=== PATIENT | male | born 1965 | race Two or more races ===

== ENCOUNTER 2023-01-04 21:00 | Inpatient (IN) | payer MEDICAID, OTHER ==
[~2023-01-04] VITALS: Ht 185.4 cm; Wt 74.7 kg
[2023-01-04 21:10] VITALS: BP 89/58
[2023-01-04 22:10] LABS: Basophils # (auto) 0 10 ^3/uL (0-0.2); Basophils % (auto) 0.6 % (0.0-2.0); Eosinophils # (auto) 0.1 10 ^3/uL (0-0.8); Eosinophils % (auto) 3.2 % (0.0-7.0); Hematocrit 31.8 % (41.0-53.0); Hemoglobin 10.3 g/dL (13.5-17.5); Lymphocytes # (auto) 0.9 10 ^3/uL (0.4-5.4); Lymphocytes % (auto) 22.7 % (10.0-50.0); Mean Corpuscular Hemoglobin 28.5 pg (28.0-32.0); Mean Corpuscular Hgb Conc. 32.4 g/dL (32.0-36.0); Mean Corpuscular Volume 88.1 fL (80.0-100.0); Monocytes # (auto) 0.5 10 ^3/uL (0-1.3); Neutrophils # (auto) 2.4 10 ^3/uL (1.6-8.6); Neutrophils % (auto) 61.5 % (37.0-80.0); Nucleated Red Blood Cells % 0.1 %; White Blood Cell 3.9 10^3/uL (4.4-10.8)
[2023-01-04 22:11] LABS: Red Cell Distribution Width 22.1 % (11.8-14.3)
[2023-01-04 22:23] LABS: Albumin 2.4 g/dL (3.4-5.0); BUN/Creatinine Ratio 10.7; Potassium 3.8 mmol/L (3.5-5.1)
[2023-01-04 22:26] LABS: Bilirubin, Total 1.6 mg/dL (0.2-1.0); Total Protein 6.8 g/dL (6.4-8.2)
[2023-01-04 22:34] LABS: INR 1.25 (0.9-1.15); Partial Thromboplastin Time 50.4 sec (24.6-33.4)
[2023-01-05 00:14] VITALS: BP 89/58
[2023-01-05] MEDS ORDERED: ALBUTEROL SULF 2.5 MG/0.5ML(0.5%) NEB SOLN NEB PRN (02:45)
[2023-01-05] MEDS ORDERED: MORPHINE SULFATE INJ 2 MG/ml SYRG IV PRN (02:45)
[2023-01-05] MEDS ORDERED: MIDODRINE HCL 10 MG TAB PO ONE (02:45)
[2023-01-05] MEDS ORDERED: IPRATROPIUM BROM 0.5 MG/2.5ML INH SOL NEB PRN (02:45)
[2023-01-05] MEDS ORDERED: NITROGLYCERIN 0.4 MG SL TAB SL PRN (02:45)
[2023-01-05] MEDS ORDERED: FUROSEMIDE 40 MG/4 ML VIAL IV ONE (02:45)
[2023-01-05] MEDS ORDERED: ONDANSETRON HCL 4 MG/2 ML VIAL IV PRN (02:45)
[2023-01-05] MEDS ORDERED: ALBUMIN 25% 50 ML IV ONE (02:45)
[2023-01-05] MEDS ORDERED: ALBUMIN 25% 100 ML IV ONE (04:30)
[2023-01-05 06:35] LABS: Urine Bacteria NONE SEEN /hpf (None Seen); Urine Blood Negative /uL (Negative); Urine Specific Gravity 1.006 (1.001-1.035); Urine WBC <1 /hpf (0 - 3)
[2023-01-05] MEDS: MIDODRINE HCL 10 MG TAB PO SCH ×3 (06:57→18:41)
[2023-01-05] MEDS ORDERED: IOHEXOL 350 MG/ML 100ML IJ ONE (08:21)
[2023-01-05] MEDS: AMIODARONE HCL 200 MG TAB PO SCH ×2 (09:42→21:38)
[2023-01-05] MEDS: PANTOPRAZOLE 40 MG TAB PO SCH (09:42)
[2023-01-05] MEDS ORDERED: ENOXAPARIN SOD 40 MG/0.4 ML SYRINGE SC SCH (10:00)
[2023-01-05] MEDS ORDERED: ENOXAPARIN SOD 100 MG/1 ML SYRINGE SC SCH (10:00)
[2023-01-05 11:10] LABS: Magnesium 1.7 mg/dL (1.6-2.6)
[2023-01-05 12:00] VITALS: BP 115/70
[2023-01-05] MEDS ORDERED: cefTRIAXone 1GM/50ML D5W 50 ML IV ONE (13:45)
[2023-01-05] MEDS ORDERED: AZITHROMYCIN 250 MG TAB PO ONE (13:45)
[2023-01-05 13:51] LABS: Basophils # (auto) 0 10 ^3/uL (0-0.2); Basophils % (auto) 0.5 % (0.0-2.0); Eosinophils # (auto) 0.1 10 ^3/uL (0-0.8); Eosinophils % (auto) 3.7 % (0.0-7.0); Hematocrit 29.3 % (41.0-53.0); Hemoglobin 9.5 g/dL (13.5-17.5); Lymphocytes # (auto) 0.7 10 ^3/uL (0.4-5.4); Lymphocytes % (auto) 18.7 % (10.0-50.0); Mean Corpuscular Hemoglobin 27.5 pg (28.0-32.0); Mean Corpuscular Hgb Conc. 32.5 g/dL (32.0-36.0); Mean Corpuscular Volume 84.7 fL (80.0-100.0); Monocytes # (auto) 0.5 10 ^3/uL (0-1.3); Monocytes % (auto) 13.2 % (0.0-12.0); Neutrophils # (auto) 2.4 10 ^3/uL (1.6-8.6); Neutrophils % (auto) 63.9 % (37.0-80.0); Nucleated Red Blood Cells % 0.2 %; Red Blood Cells 3.46 10^6/uL (4.5-5.90); White Blood Cell 3.8 10^3/uL (4.4-10.8)
[2023-01-05 13:56] LABS: Red Cell Distribution Width 22.6 % (11.8-14.3)
[2023-01-05 14:01] LABS: Albumin 2.1 g/dL (3.4-5.0); BUN/Creatinine Ratio 8.8; Calcium 7.7 mg/dL (8.5-10.1); Potassium 3.7 mmol/L (3.5-5.1)
[2023-01-05 14:04] LABS: Bilirubin, Total 1.4 mg/dL (0.2-1.0)
[2023-01-05 14:09] VITALS: BP 100/58
[2023-01-05] MEDS ORDERED: ALBUTEROL MEDNEB 2.5 mg/3ml NEB ONE (14:55)
[2023-01-05 15:06] VITALS: BP 108/58
[2023-01-05] MEDS ORDERED: FUROSEMIDE 20 MG/2 ML VIAL IV SCH (18:00)
[2023-01-05] MEDS: FUROSEMIDE 20 MG/2 ML VIAL IV SCH (18:40)
[2023-01-05 20:00] VITALS: BP 102/51
[2023-01-05] MEDS: APIXABAN 5 MG TAB PO SCH (21:38)
[2023-01-05 22:00] VITALS: BP 102/51
[2023-01-06 05:00] VITALS: BP 108/62
[2023-01-06 06:13] LABS: Basophils # (auto) 0 10 ^3/uL (0-0.2); Basophils % (auto) 0.8 % (0.0-2.0); Eosinophils # (auto) 0.1 10 ^3/uL (0-0.8); Eosinophils % (auto) 3.4 % (0.0-7.0); Hematocrit 26.5 % (41.0-53.0); Hemoglobin 9.4 g/dL (13.5-17.5); Lymphocytes # (auto) 0.8 10 ^3/uL (0.4-5.4); Lymphocytes % (auto) 24.5 % (10.0-50.0); Mean Corpuscular Hemoglobin 30.9 pg (28.0-32.0); Mean Corpuscular Hgb Conc. 35.7 g/dL (32.0-36.0); Mean Corpuscular Volume 86.4 fL (80.0-100.0); Monocytes # (auto) 0.5 10 ^3/uL (0-1.3); Neutrophils # (auto) 1.8 10 ^3/uL (1.6-8.6); Neutrophils % (auto) 56.3 % (37.0-80.0); Nucleated Red Blood Cells % 0.1 %; Red Blood Cells 3.06 10^6/uL (4.5-5.90); White Blood Cell 3.2 10^3/uL (4.4-10.8)
[2023-01-06 06:29] LABS: Red Cell Distribution Width 22.1 % (11.8-14.3)
[2023-01-06 06:37] LABS: Albumin 2.2 g/dL (3.4-5.0); Bilirubin, Total 1.3 mg/dL (0.2-1.0); Calcium 7.7 mg/dL (8.5-10.1); Potassium 3.3 mmol/L (3.5-5.1); Total Protein 6.1 g/dL (6.4-8.2)
[2023-01-06] MEDS: MIDODRINE HCL 10 MG TAB PO SCH (06:37)
[2023-01-06] MEDS: FUROSEMIDE 20 MG/2 ML VIAL IV SCH ×2 (06:38→18:00)
[2023-01-06 08:10] VITALS: BP 97/54
[2023-01-06 09:00] VITALS: BP 97/54
[2023-01-06] MEDS ORDERED: ENOXAPARIN SOD 100 MG/1 ML SYRINGE SC SCH (10:00)
[2023-01-06] MEDS: cefTRIAXone 1GM/50ML D5W 50 ML IV SCH (10:10)
[2023-01-06] MEDS: PANTOPRAZOLE 40 MG TAB PO SCH (10:14)
[2023-01-06] MEDS: AMIODARONE HCL 200 MG TAB PO SCH ×2 (10:14→22:39)
[2023-01-06] MEDS: AZITHROMYCIN 250 MG TAB PO SCH (10:14)
[2023-01-06] MEDS: APIXABAN 5 MG TAB PO SCH ×2 (10:14→22:39)
[2023-01-06] MEDS ORDERED: POTASSIUM EFFERVESENT TAB 25 MEQ PO ONE (10:15)
[2023-01-06] MEDS ORDERED: MAGNESIUM OXIDE 400 MG TAB PO ONE (10:15)
[2023-01-06] MEDS: DOBUTamine 1000MCG/ML 250 ML IV SCH (12:21)
[2023-01-06 12:32] LABS: Alcohol, Urine < 3.0 mg/dL (0-10); Amphetamine Screen, Urine NEGATIVE (NEGATIVE); Barbiturate Scree,Urine NEGATIVE (NEGATIVE); Benzodiazephine Screen, Urine NEGATIVE (NEGATIVE); Cannabinoid Screen, Urine POSITIVE (NEGATIVE); Cocaine Screen, Urine NEGATIVE (NEGATIVE); Opiate Scree,Urine NEGATIVE (NEGATIVE); Phencyclidine Screen, Urine NEGATIVE (NEGATIVE)
[2023-01-06 16:36] VITALS: BP 106/49
[2023-01-06 20:00] VITALS: BP 98/55
[2023-01-06 22:00] VITALS: BP 90/55
[2023-01-06] MEDS: SACUBITRIL-VALSARTAN 24mg/26mg TAB PO SCH (22:00)
[2023-01-07] VITALS (8 sets, daily range): BP systolic 96–109; BP diastolic 50–63
[2023-01-07] MEDS: ACETAMINOPHEN 325 MG TAB PO PRN (00:59)
[2023-01-07] MEDS: FUROSEMIDE 20 MG/2 ML VIAL IV SCH ×2 (07:02→17:54)
[2023-01-07] MEDS: EMPAGLIFLOZIN 10 MG TAB PO SCH (07:03)
[2023-01-07] MEDS: DOBUTamine 1000MCG/ML 250 ML IV SCH (07:42)
[2023-01-07 09:12] LABS: Basophils # (auto) 0 10 ^3/uL (0-0.2); Basophils % (auto) 0.6 % (0.0-2.0); Eosinophils # (auto) 0.1 10 ^3/uL (0-0.8); Neutrophils # (auto) 1.8 10 ^3/uL (1.6-8.6)
[2023-01-07 09:16] LABS: Eosinophils % (auto) 4.4 % (0.0-7.0); Hematocrit 30.1 % (41.0-53.0); Lymphocytes # (auto) 0.7 10 ^3/uL (0.4-5.4); Lymphocytes % (auto) 23.7 % (10.0-50.0); Mean Corpuscular Hemoglobin 27.3 pg (28.0-32.0); Mean Corpuscular Hgb Conc. 33.2 g/dL (32.0-36.0); Mean Corpuscular Volume 82.1 fL (80.0-100.0); Monocytes # (auto) 0.3 10 ^3/uL (0-1.3); Monocytes % (auto) 10.6 % (0.0-12.0); Neutrophils % (auto) 60.7 % (37.0-80.0); Red Blood Cells 3.66 10^6/uL (4.5-5.90); White Blood Cell 2.9 10^3/uL (4.4-10.8)
[2023-01-07 09:23] LABS: Red Cell Distribution Width 22.8 % (11.8-14.3)
[2023-01-07] MEDS: cefTRIAXone 1GM/50ML D5W 50 ML IV SCH (09:31)
[2023-01-07 09:32] LABS: Calcium 7.9 mg/dL (8.5-10.1); Potassium 3.5 mmol/L (3.5-5.1)
[2023-01-07 09:39] LABS: Albumin 2.4 g/dL (3.4-5.0); BUN/Creatinine Ratio 10.1; Bilirubin, Total 1.3 mg/dL (0.2-1.0); Magnesium 1.6 mg/dL (1.6-2.6); Total Protein 6.5 g/dL (6.4-8.2)
[2023-01-07] MEDS: SACUBITRIL-VALSARTAN 24mg/26mg TAB PO SCH ×2 (10:00→22:00)
[2023-01-07] MEDS: AZITHROMYCIN 250 MG TAB PO SCH (10:16)
[2023-01-07] MEDS: APIXABAN 5 MG TAB PO SCH ×2 (10:16→22:45)
[2023-01-07] MEDS: AMIODARONE HCL 200 MG TAB PO SCH ×2 (10:16→22:46)
[2023-01-07] MEDS: PANTOPRAZOLE 40 MG TAB PO SCH (10:17)
[2023-01-07] MEDS: MAGNESIUM OXIDE 400 MG TAB PO SCH (10:17)
[2023-01-08] VITALS (8 sets, daily range): BP systolic 86–99; BP diastolic 50–58
[2023-01-08] MEDS: DOBUTamine 1000MCG/ML 250 ML IV SCH ×2 (01:51→17:33)
[2023-01-08 05:22] LABS: Basophils # (auto) 0 10 ^3/uL (0-0.2); Eosinophils # (auto) 0.1 10 ^3/uL (0-0.8); Lymphocytes % (auto) 23.1 % (10.0-50.0); Mean Corpuscular Hemoglobin 26.6 pg (28.0-32.0); Monocytes # (auto) 0.4 10 ^3/uL (0-1.3); Neutrophils # (auto) 1.9 10 ^3/uL (1.6-8.6); Red Blood Cells 2.99 10^6/uL (4.5-5.90)
[2023-01-08 05:26] LABS: Basophils % (auto) 0.6 % (0.0-2.0); Eosinophils % (auto) 4.6 % (0.0-7.0); Hemoglobin 7.9 g/dL (13.5-17.5); Lymphocytes # (auto) 0.7 10 ^3/uL (0.4-5.4); Mean Corpuscular Hgb Conc. 33.2 g/dL (32.0-36.0); Mean Corpuscular Volume 80.1 fL (80.0-100.0); Monocytes % (auto) 13.2 % (0.0-12.0); Neutrophils % (auto) 58.5 % (37.0-80.0); Nucleated Red Blood Cells % 0.1 %; White Blood Cell 3.2 10^3/uL (4.4-10.8)
[2023-01-08 05:29] LABS: Red Cell Distribution Width 22.3 % (11.8-14.3)
[2023-01-08 05:51] LABS: Potassium 3.4 mmol/L (3.5-5.1)
[2023-01-08 05:55] LABS: Albumin 1.9 g/dL (3.4-5.0); BUN/Creatinine Ratio 10.7; Calcium 7.6 mg/dL (8.5-10.1)
[2023-01-08 05:57] LABS: Bilirubin, Total 0.9 mg/dL (0.2-1.0); Total Protein 5.6 g/dL (6.4-8.2)
[2023-01-08] MEDS: FUROSEMIDE 20 MG/2 ML VIAL IV SCH ×2 (06:00→17:33)
[2023-01-08] MEDS: EMPAGLIFLOZIN 10 MG TAB PO SCH (06:34)
[2023-01-08] MEDS: cefTRIAXone 1GM/50ML D5W 50 ML IV SCH (08:41)
[2023-01-08] MEDS: SACUBITRIL-VALSARTAN 24mg/26mg TAB PO SCH ×2 (10:00→22:00)
[2023-01-08] MEDS: APIXABAN 5 MG TAB PO SCH ×2 (10:15→21:38)
[2023-01-08] MEDS: AMIODARONE HCL 200 MG TAB PO SCH ×2 (10:16→21:37)
[2023-01-08] MEDS: AZITHROMYCIN 250 MG TAB PO SCH (10:16)
[2023-01-08] MEDS: PANTOPRAZOLE 40 MG TAB PO SCH (10:16)
[2023-01-08] MEDS: MAGNESIUM OXIDE 400 MG TAB PO SCH (10:16)
[2023-01-08] MEDS ORDERED: POTASSIUM EFFERVESENT TAB 25 MEQ GT ONE (16:00)
[2023-01-08] MEDS ORDERED: POTASSIUM EFFERVESENT TAB 25 MEQ PO ONE (16:15)
[2023-01-08] MEDS: ACETAMINOPHEN 325 MG TAB PO PRN (21:37)
[2023-01-09] VITALS (7 sets, daily range): BP systolic 90–130; BP diastolic 0–83
[2023-01-09] MEDS: FUROSEMIDE 20 MG/2 ML VIAL IV SCH ×2 (06:00→17:40)
[2023-01-09] MEDS: EMPAGLIFLOZIN 10 MG TAB PO SCH (06:24)
[2023-01-09 06:40] LABS: Basophils # (auto) 0 10 ^3/uL (0-0.2); Eosinophils # (auto) 0.2 10 ^3/uL (0-0.8); Lymphocytes # (auto) 0.6 10 ^3/uL (0.4-5.4); Monocytes # (auto) 0.3 10 ^3/uL (0-1.3); White Blood Cell 3.2 10^3/uL (4.4-10.8)
[2023-01-09 06:42] LABS: Basophils % (auto) 0.8 % (0.0-2.0); Eosinophils % (auto) 5.6 % (0.0-7.0); Hematocrit 24.1 % (41.0-53.0); Lymphocytes % (auto) 18.9 % (10.0-50.0); Mean Corpuscular Hemoglobin 27.5 pg (28.0-32.0); Mean Corpuscular Hgb Conc. 33.4 g/dL (32.0-36.0); Mean Corpuscular Volume 82.2 fL (80.0-100.0); Monocytes % (auto) 10.8 % (0.0-12.0); Neutrophils % (auto) 63.9 % (37.0-80.0); Red Blood Cells 2.93 10^6/uL (4.5-5.90)
[2023-01-09 06:48] LABS: Red Cell Distribution Width 21.6 % (11.8-14.3)
[2023-01-09 06:57] LABS: Albumin 1.9 g/dL (3.4-5.0); BUN/Creatinine Ratio 11.7; Calcium 7.7 mg/dL (8.5-10.1); Magnesium 1.8 mg/dL (1.6-2.6); Potassium 3.7 mmol/L (3.5-5.1)
[2023-01-09 06:59] LABS: Bilirubin, Total 0.8 mg/dL (0.2-1.0); Total Protein 5.8 g/dL (6.4-8.2)
[2023-01-09] MEDS: AMIODARONE HCL 200 MG TAB PO SCH ×3 (10:00→22:44)
[2023-01-09] MEDS: cefTRIAXone 1GM/50ML D5W 50 ML IV SCH (11:24)
[2023-01-09] MEDS: MAGNESIUM OXIDE 400 MG TAB PO SCH (11:27)
[2023-01-09] MEDS: SACUBITRIL-VALSARTAN 24mg/26mg TAB PO SCH ×2 (11:27→22:00)
[2023-01-09] MEDS: PANTOPRAZOLE 40 MG TAB PO SCH (11:27)
[2023-01-09] MEDS: AZITHROMYCIN 250 MG TAB PO SCH (11:28)
[2023-01-09] MEDS: DOBUTamine 1000MCG/ML 250 ML IV SCH ×2 (11:36→21:15)
[2023-01-09 14:30] LABS: Basophils # (auto) 0 10 ^3/uL (0-0.2); Basophils % (auto) 0.6 % (0.0-2.0); Eosinophils # (auto) 0.1 10 ^3/uL (0-0.8); Eosinophils % (auto) 3.4 % (0.0-7.0); Hematocrit 27.3 % (41.0-53.0); Hemoglobin 8.7 g/dL (13.5-17.5); Lymphocytes # (auto) 0.8 10 ^3/uL (0.4-5.4); Lymphocytes % (auto) 18.4 % (10.0-50.0); Mean Corpuscular Hgb Conc. 31.9 g/dL (32.0-36.0); Mean Corpuscular Volume 81.3 fL (80.0-100.0); Monocytes # (auto) 0.4 10 ^3/uL (0-1.3); Monocytes % (auto) 9.2 % (0.0-12.0); Neutrophils # (auto) 2.9 10 ^3/uL (1.6-8.6); Neutrophils % (auto) 68.4 % (37.0-80.0); Nucleated Red Blood Cells % 0.1 %; Red Blood Cells 3.35 10^6/uL (4.5-5.90); White Blood Cell 4.3 10^3/uL (4.4-10.8)
[2023-01-10 05:00] VITALS: BP 86/51
[2023-01-10] MEDS: FUROSEMIDE 20 MG/2 ML VIAL IV SCH (06:00)
[2023-01-10] MEDS: EMPAGLIFLOZIN 10 MG TAB PO SCH (06:27)
[2023-01-10 06:48] LABS: Basophils # (auto) 0 10 ^3/uL (0-0.2); Eosinophils # (auto) 0.1 10 ^3/uL (0-0.8); Hemoglobin 7.9 g/dL (13.5-17.5); Lymphocytes # (auto) 0.7 10 ^3/uL (0.4-5.4); Nucleated Red Blood Cells % 0.1 %
[2023-01-10 06:52] LABS: Basophils % (auto) 0.4 % (0.0-2.0); Eosinophils % (auto) 3.8 % (0.0-7.0); Hematocrit 22.7 % (41.0-53.0); Lymphocytes % (auto) 18.7 % (10.0-50.0); Mean Corpuscular Hemoglobin 29.4 pg (28.0-32.0); Mean Corpuscular Hgb Conc. 34.9 g/dL (32.0-36.0); Mean Corpuscular Volume 84.3 fL (80.0-100.0); Monocytes # (auto) 0.5 10 ^3/uL (0-1.3); Neutrophils # (auto) 2.5 10 ^3/uL (1.6-8.6); Neutrophils % (auto) 65.1 % (37.0-80.0); Red Blood Cells 2.69 10^6/uL (4.5-5.90); White Blood Cell 3.9 10^3/uL (4.4-10.8)
[2023-01-10 07:08] LABS: Calcium 7.4 mg/dL (8.5-10.1); Potassium 3.6 mmol/L (3.5-5.1)
[2023-01-10 07:13] LABS: BUN/Creatinine Ratio 12.5; Total Protein 5.6 g/dL (6.4-8.2)
[2023-01-10 07:40] LABS: Red Cell Distribution Width 21.5 % (11.8-14.3)
[2023-01-10 08:46] VITALS: BP 99/49
[2023-01-10] MEDS: SACUBITRIL-VALSARTAN 24mg/26mg TAB PO SCH ×2 (10:00→21:26)
[2023-01-10] MEDS ORDERED: PANTOPRAZOLE 80 MG in SODIUM CHL 0.9% 100 ML IV ONE (10:45)
[2023-01-10] MEDS ORDERED: PANTOPRAZOLE 40mg/50ML NS AE 50 ML IV SCH (10:45)
[2023-01-10] MEDS: AMIODARONE HCL 200 MG TAB PO SCH ×2 (10:57→21:26)
[2023-01-10] MEDS: MAGNESIUM OXIDE 400 MG TAB PO SCH (10:57)
[2023-01-10] MEDS: AZITHROMYCIN 250 MG TAB PO SCH (10:57)
[2023-01-10] MEDS: cefTRIAXone 1GM/50ML D5W 50 ML IV SCH (10:58)
[2023-01-10] MEDS: DOBUTamine 1000MCG/ML 250 ML IV SCH (10:58)
[2023-01-10 13:00] VITALS: BP 90/52
[2023-01-10 13:43] LABS: Lymphocytes # (auto) 0.7 10 ^3/uL (0.4-5.4); Monocytes # (auto) 0.4 10 ^3/uL (0-1.3); White Blood Cell 3.8 10^3/uL (4.4-10.8)
[2023-01-10 13:45] LABS: Basophils # (auto) 0.1 10 ^3/uL (0-0.2); Basophils % (auto) 1.7 % (0.0-2.0); Eosinophils # (auto) 0.1 10 ^3/uL (0-0.8); Eosinophils % (auto) 3.6 % (0.0-7.0); Hematocrit 24.6 % (41.0-53.0); Hemoglobin 7.9 g/dL (13.5-17.5); Lymphocytes % (auto) 17.5 % (10.0-50.0); Mean Corpuscular Hemoglobin 27.7 pg (28.0-32.0); Mean Corpuscular Hgb Conc. 32.4 g/dL (32.0-36.0); Mean Corpuscular Volume 85.7 fL (80.0-100.0); Monocytes % (auto) 10.5 % (0.0-12.0); Neutrophils # (auto) 2.5 10 ^3/uL (1.6-8.6); Neutrophils % (auto) 66.7 % (37.0-80.0); Red Blood Cells 2.87 10^6/uL (4.5-5.90); Red Cell Distribution Width 22.2 % (11.8-14.3)
[2023-01-10 17:10] VITALS: BP 101/50
[2023-01-10] MEDS: PANTOPRAZOLE 40 MG/10 ML VIAL INJ IV SCH (21:25)
[2023-01-10 22:00] VITALS: BP 79/51
[2023-01-10] MEDS ORDERED: SODIUM FERR GLUC 62.5MG/5ML 125 MG in SODIUM CHL 0.9% 100 ML IV ONE (23:00)
[2023-01-11 05:00] VITALS: BP 87/48
[2023-01-11 06:35] LABS: Basophils # (auto) 0 10 ^3/uL (0-0.2); Basophils % (auto) 0.5 % (0.0-2.0); Hematocrit 22.9 % (41.0-53.0); Lymphocytes # (auto) 0.7 10 ^3/uL (0.4-5.4); Monocytes # (auto) 0.4 10 ^3/uL (0-1.3); Neutrophils # (auto) 2.2 10 ^3/uL (1.6-8.6)
[2023-01-11 06:37] LABS: Eosinophils # (auto) 0.2 10 ^3/uL (0-0.8); Eosinophils % (auto) 4.4 % (0.0-7.0); Lymphocytes % (auto) 20.7 % (10.0-50.0); Mean Corpuscular Hemoglobin 30.5 pg (28.0-32.0); Mean Corpuscular Hgb Conc. 34.9 g/dL (32.0-36.0); Mean Corpuscular Volume 87.4 fL (80.0-100.0); Neutrophils % (auto) 63.4 % (37.0-80.0); Nucleated Red Blood Cells % 0.2 %; Red Blood Cells 2.62 10^6/uL (4.5-5.90); White Blood Cell 3.5 10^3/uL (4.4-10.8)
[2023-01-11 06:40] LABS: Potassium 3.7 mmol/L (3.5-5.1)
[2023-01-11] MEDS: EMPAGLIFLOZIN 10 MG TAB PO SCH (06:47)
[2023-01-11] MEDS: SUCRALFATE 1 GM/10 ML ORAL SUSP PO SCH ×2 (06:47→18:00)
[2023-01-11 06:50] LABS: Bilirubin, Total 0.8 mg/dL (0.2-1.0); Calcium 7.6 mg/dL (8.5-10.1); Total Protein 5.6 g/dL (6.4-8.2)
[2023-01-11] MEDS ORDERED: SODIUM FERR GLUC 62.5MG/5ML 125 MG in SODIUM CHL 0.9% 100 ML IV ONE (08:40)
[2023-01-11 09:05] VITALS: BP 83/47
[2023-01-11] MEDS: PANTOPRAZOLE 40 MG/10 ML VIAL INJ IV SCH ×2 (09:23→22:27)
[2023-01-11] MEDS: cefTRIAXone 1GM/50ML D5W 50 ML IV SCH (09:23)
[2023-01-11] MEDS: FOLIC ACID 1 MG TAB PO SCH (09:23)
[2023-01-11] MEDS: MAGNESIUM OXIDE 400 MG TAB PO SCH (09:24)
[2023-01-11] MEDS: AMIODARONE HCL 200 MG TAB PO SCH ×2 (09:24→22:27)
[2023-01-11] MEDS: SACUBITRIL-VALSARTAN 24mg/26mg TAB PO SCH (09:24)
[2023-01-11] MEDS: THIAMINE HCL 100 MG TAB PO SCH (09:24)
[2023-01-11] MEDS: AZITHROMYCIN 250 MG TAB PO SCH (09:24)
[2023-01-11 13:01] VITALS: BP 81/44
[2023-01-11] MEDS ORDERED: SODIUM CHLORIDE 0.9% 1,000 ML IV ONE (16:15)
[2023-01-11] MEDS ORDERED: OCTREOTIDE ACETATE 100 MCG in SODIUM CHL 0.9% 50 ML IV ONE (16:30)
[2023-01-11 17:00] VITALS: BP 94/52
[2023-01-11] MEDS: MIDODRINE HCL 10 MG TAB PO SCH (18:00)
[2023-01-11 22:06] VITALS: BP 85/52
[2023-01-11] MEDS: AMOXICILLIN/CLAVUL 875 MG TAB PO SCH (22:27)
[2023-01-12] MEDS: OCTREOTIDE ACETATE 500 MCG in SODIUM CHL 0.9% 99 ML IV SCH ×4 (00:07→22:30)
[2023-01-12 04:58] VITALS: BP 91/39
[2023-01-12] MEDS: SUCRALFATE 1 GM/10 ML ORAL SUSP PO SCH ×2 (05:56→17:35)
[2023-01-12] MEDS: MIDODRINE HCL 10 MG TAB PO SCH ×2 (05:56→12:45)
[2023-01-12 06:09] LABS: Basophils # (auto) 0 10 ^3/uL (0-0.2); Basophils % (auto) 0.7 % (0.0-2.0); Eosinophils # (auto) 0.2 10 ^3/uL (0-0.8); Lymphocytes # (auto) 0.6 10 ^3/uL (0.4-5.4); Mean Corpuscular Hemoglobin 28.6 pg (28.0-32.0); Monocytes # (auto) 0.4 10 ^3/uL (0-1.3); Neutrophils # (auto) 1.8 10 ^3/uL (1.6-8.6); Nucleated Red Blood Cells % 0.1 %
[2023-01-12 06:12] LABS: Hemoglobin 8.2 g/dL (13.5-17.5); Lymphocytes % (auto) 20.9 % (10.0-50.0); Mean Corpuscular Hgb Conc. 34.4 g/dL (32.0-36.0); Mean Corpuscular Volume 83.3 fL (80.0-100.0); Monocytes % (auto) 13.3 % (0.0-12.0); Neutrophils % (auto) 59.1 % (37.0-80.0); Red Blood Cells 2.88 10^6/uL (4.5-5.90); White Blood Cell 3.1 10^3/uL (4.4-10.8)
[2023-01-12 06:18] LABS: Red Cell Distribution Width 21.5 % (11.8-14.3)
[2023-01-12 06:35] LABS: Calcium 7.6 mg/dL (8.5-10.1); Potassium 3.8 mmol/L (3.5-5.1)
[2023-01-12 06:39] LABS: BUN/Creatinine Ratio 9.8; Bilirubin, Total 0.9 mg/dL (0.2-1.0); Total Protein 6.1 g/dL (6.4-8.2)
[2023-01-12 09:00] VITALS: BP 100/58
[2023-01-12] MEDS: PANTOPRAZOLE 40 MG/10 ML VIAL INJ IV SCH ×2 (09:18→21:21)
[2023-01-12] MEDS: FOLIC ACID 1 MG TAB PO SCH (09:18)
[2023-01-12] MEDS: THIAMINE HCL 100 MG TAB PO SCH (09:18)
[2023-01-12] MEDS: MAGNESIUM OXIDE 400 MG TAB PO SCH (09:19)
[2023-01-12] MEDS: AMIODARONE HCL 200 MG TAB PO SCH ×2 (09:19→21:21)
[2023-01-12] MEDS: AMOXICILLIN/CLAVUL 875 MG TAB PO SCH ×2 (09:21→21:31)
[2023-01-12] MEDS ORDERED: MAGNESIUM SULFATE 1GM/100ML 100 ML IV ONE (10:15)
[2023-01-12 12:28] LABS: Hepatitis B Surface Antibody Negative (Negative)
[2023-01-12 12:31] LABS: Hepatitis A Total Antibody Positive (Negative)
[2023-01-12 12:33] LABS: Hepatitis C Antibody Negative (Negative)
[2023-01-12 14:15] VITALS: BP 92/54
[2023-01-12 16:36] VITALS: BP 90/51
[2023-01-12 22:00] VITALS: BP 87/50
[2023-01-13] MEDS: OCTREOTIDE ACETATE 500 MCG in SODIUM CHL 0.9% 99 ML IV SCH ×2 (01:37→14:58)
[2023-01-13 05:00] VITALS: BP 103/51
[2023-01-13] MEDS: SUCRALFATE 1 GM/10 ML ORAL SUSP PO SCH ×2 (06:48→17:03)
[2023-01-13 08:56] VITALS: BP 106/43
[2023-01-13] MEDS: PANTOPRAZOLE 40 MG/10 ML VIAL INJ IV SCH ×2 (09:15→22:37)
[2023-01-13] MEDS: AMOXICILLIN/CLAVUL 875 MG TAB PO SCH (09:15)
[2023-01-13] MEDS: THIAMINE HCL 100 MG TAB PO SCH (09:15)
[2023-01-13] MEDS: FOLIC ACID 1 MG TAB PO SCH (09:15)
[2023-01-13] MEDS: AMIODARONE HCL 200 MG TAB PO SCH ×2 (09:17→22:38)
[2023-01-13] MEDS: MAGNESIUM OXIDE 400 MG TAB PO SCH (09:18)
[2023-01-13 12:43] VITALS: BP 110/63
[2023-01-13] MEDS ORDERED: LISINOPRIL 5 MG TAB PO ONE (13:30)
[2023-01-13 16:01] LABS: Basophils # (auto) 0 10 ^3/uL (0-0.2); Basophils % (auto) 0.3 % (0.0-2.0); Eosinophils # (auto) 0.1 10 ^3/uL (0-0.8); Eosinophils % (auto) 3.4 % (0.0-7.0); Hematocrit 27.3 % (41.0-53.0); Hemoglobin 8.9 g/dL (13.5-17.5); Lymphocytes # (auto) 0.8 10 ^3/uL (0.4-5.4); Mean Corpuscular Hemoglobin 27.4 pg (28.0-32.0); Mean Corpuscular Hgb Conc. 32.4 g/dL (32.0-36.0); Mean Corpuscular Volume 84.5 fL (80.0-100.0); Monocytes # (auto) 0.4 10 ^3/uL (0-1.3); Monocytes % (auto) 12.7 % (0.0-12.0); Neutrophils # (auto) 1.9 10 ^3/uL (1.6-8.6); Neutrophils % (auto) 59.6 % (37.0-80.0); Nucleated Red Blood Cells % 0.1 %; Red Blood Cells 3.24 10^6/uL (4.5-5.90); White Blood Cell 3.3 10^3/uL (4.4-10.8)
[2023-01-13 16:02] LABS: Red Cell Distribution Width 21.8 % (11.8-14.3)
[2023-01-13 16:19] LABS: Albumin 2.2 g/dL (3.4-5.0); BUN/Creatinine Ratio 7.3; Calcium 7.7 mg/dL (8.5-10.1); Potassium 3.9 mmol/L (3.5-5.1)
[2023-01-13 16:21] LABS: Bilirubin, Total 0.9 mg/dL (0.2-1.0); Total Protein 6.9 g/dL (6.4-8.2)
[2023-01-13 16:59] VITALS: BP 118/63
[2023-01-13 22:00] VITALS: BP 115/61
[2023-01-14] MEDS: OCTREOTIDE ACETATE 500 MCG in SODIUM CHL 0.9% 99 ML IV SCH ×2 (04:18→13:47)
[2023-01-14 05:00] VITALS: BP 115/66
[2023-01-14] MEDS: SUCRALFATE 1 GM/10 ML ORAL SUSP PO SCH ×2 (06:54→17:34)
[2023-01-14 07:48] LABS: Hematocrit 25.7 % (41.0-53.0); Hemoglobin 8.5 g/dL (13.5-17.5); Mean Corpuscular Hemoglobin 28.1 pg (28.0-32.0); Mean Corpuscular Hgb Conc. 32.9 g/dL (32.0-36.0); Mean Corpuscular Volume 85.4 fL (80.0-100.0); Red Blood Cells 3.02 10^6/uL (4.5-5.90); White Blood Cell 3.2 10^3/uL (4.4-10.8)
[2023-01-14 07:53] LABS: Red Cell Distribution Width 21.9 % (11.8-14.3)
[2023-01-14 07:54] LABS: Basophils % (manual) 0 (0.0-2.0); Blast Cells 0; Metamyelocytes % 0; Promyelocytes % 0; Reactive Lymphocytes 0
[2023-01-14 08:00] LABS: Calcium 7.9 mg/dL (8.5-10.1); Potassium 3.7 mmol/L (3.5-5.1)
[2023-01-14 08:02] LABS: BUN/Creatinine Ratio 6.5
[2023-01-14 08:05] LABS: Total Protein 6.5 g/dL (6.4-8.2)
[2023-01-14 08:50] LABS: Band Neutrophils % (manual) 7; Eosinophils % (manual) 2 (0-7); Lymphocytes % (manual) 21 (10.0-50.0); Monocytes % (manual) 10 (0-12); Myelocytes % 1
[2023-01-14] MEDS: LISINOPRIL 5 MG TAB PO SCH (09:10)
[2023-01-14] MEDS: AMIODARONE HCL 200 MG TAB PO SCH ×2 (09:10→22:54)
[2023-01-14] MEDS: THIAMINE HCL 100 MG TAB PO SCH (09:14)
[2023-01-14] MEDS: PANTOPRAZOLE 40 MG/10 ML VIAL INJ IV SCH ×2 (09:14→22:54)
[2023-01-14] MEDS: levoFLOXacin 250 MG TAB PO SCH (09:14)
[2023-01-14] MEDS: FOLIC ACID 1 MG TAB PO SCH (09:14)
[2023-01-14] MEDS: MAGNESIUM OXIDE 400 MG TAB PO SCH (11:54)
[2023-01-14] MEDS ORDERED: VANCOMYCIN PER PHARMACY 0 MG IV SCH (15:15)
[2023-01-14] MEDS: VANCOMYCIN 1GM/250ML 250 ML IV SCH ×2 (16:27→22:53)
[2023-01-14 21:34] VITALS: BP 118/60
[2023-01-15] MEDS: OCTREOTIDE ACETATE 500 MCG in SODIUM CHL 0.9% 99 ML IV SCH (02:04)
[2023-01-15] MEDS: VANCOMYCIN 1GM/250ML 250 ML IV SCH ×4 (04:00→22:29)
[2023-01-15 04:50] VITALS: BP 120/61
[2023-01-15] MEDS: SUCRALFATE 1 GM/10 ML ORAL SUSP PO SCH ×3 (05:45→16:31)
[2023-01-15 06:30] LABS: Basophils # (auto) 0 10 ^3/uL (0-0.2); Basophils % (auto) 1.1 % (0.0-2.0); Eosinophils # (auto) 0.2 10 ^3/uL (0-0.8); Eosinophils % (auto) 4.3 % (0.0-7.0); Hemoglobin 9.1 g/dL (13.5-17.5); Lymphocytes # (auto) 0.9 10 ^3/uL (0.4-5.4); Lymphocytes % (auto) 25.1 % (10.0-50.0); Mean Corpuscular Hemoglobin 27.9 pg (28.0-32.0); Mean Corpuscular Hgb Conc. 33.9 g/dL (32.0-36.0); Mean Corpuscular Volume 82.5 fL (80.0-100.0); Monocytes # (auto) 0.5 10 ^3/uL (0-1.3); Monocytes % (auto) 13.8 % (0.0-12.0); Neutrophils % (auto) 55.7 % (37.0-80.0); Nucleated Red Blood Cells % 0.2 %; Red Blood Cells 3.27 10^6/uL (4.5-5.90); White Blood Cell 3.6 10^3/uL (4.4-10.8)
[2023-01-15 06:50] LABS: Red Cell Distribution Width 21.8 % (11.8-14.3)
[2023-01-15 07:09] LABS: Potassium 3.5 mmol/L (3.5-5.1)
[2023-01-15 07:23] LABS: Albumin 2.2 g/dL (3.4-5.0); BUN/Creatinine Ratio 7.1; Bilirubin, Total 1.1 mg/dL (0.2-1.0); Calcium 7.7 mg/dL (8.5-10.1); Total Protein 6.7 g/dL (6.4-8.2)
[2023-01-15 08:55] VITALS: BP 128/69
[2023-01-15] MEDS: AMIODARONE HCL 200 MG TAB PO SCH ×2 (09:28→22:35)
[2023-01-15] MEDS: levoFLOXacin 250 MG TAB PO SCH (09:28)
[2023-01-15] MEDS: LISINOPRIL 5 MG TAB PO SCH (09:28)
[2023-01-15] MEDS: PANTOPRAZOLE 40 MG/10 ML VIAL INJ IV SCH ×2 (09:28→22:27)
[2023-01-15] MEDS: THIAMINE HCL 100 MG TAB PO SCH (09:28)
[2023-01-15] MEDS: FOLIC ACID 1 MG TAB PO SCH (09:28)
[2023-01-15] MEDS ORDERED: CARVEDILOL 3.125 MG TAB PO ONE (11:45)
[2023-01-15] MEDS ORDERED: EMPAGLIFLOZIN 10 MG TAB PO ONE (11:45)
[2023-01-15] MEDS: MAGNESIUM OXIDE 400 MG TAB PO SCH (12:01)
[2023-01-15 13:00] VITALS: BP 125/65
[2023-01-15 17:02] VITALS: BP 120/71
[2023-01-15 20:00] VITALS: BP 107/64
[2023-01-15 20:54] VITALS: BP 107/64
[2023-01-15] MEDS: CARVEDILOL 3.125 MG TAB PO SCH (22:28)
[2023-01-16] MEDS: VANCOMYCIN 1GM/250ML 250 ML IV SCH ×4 (03:54→22:00)
[2023-01-16 05:00] VITALS: BP 95/60
[2023-01-16 06:03] LABS: Basophils # (auto) 0 10 ^3/uL (0-0.2); Basophils % (auto) 0.7 % (0.0-2.0); Eosinophils # (auto) 0.2 10 ^3/uL (0-0.8); Neutrophils # (auto) 1.9 10 ^3/uL (1.6-8.6)
[2023-01-16 06:06] LABS: Eosinophils % (auto) 4.9 % (0.0-7.0); Hematocrit 24.2 % (41.0-53.0); Hemoglobin 8.2 g/dL (13.5-17.5); Lymphocytes # (auto) 0.9 10 ^3/uL (0.4-5.4); Lymphocytes % (auto) 25.5 % (10.0-50.0); Mean Corpuscular Hemoglobin 28.6 pg (28.0-32.0); Mean Corpuscular Hgb Conc. 34.1 g/dL (32.0-36.0); Mean Corpuscular Volume 83.9 fL (80.0-100.0); Monocytes # (auto) 0.6 10 ^3/uL (0-1.3); Monocytes % (auto) 15.6 % (0.0-12.0); Neutrophils % (auto) 53.3 % (37.0-80.0); Nucleated Red Blood Cells % 0.2 %; Red Blood Cells 2.88 10^6/uL (4.5-5.90); White Blood Cell 3.6 10^3/uL (4.4-10.8)
[2023-01-16 06:31] LABS: BUN/Creatinine Ratio 8.8; Bilirubin, Total 1.1 mg/dL (0.2-1.0); Calcium 7.5 mg/dL (8.5-10.1); Potassium 3.4 mmol/L (3.5-5.1); Total Protein 5.9 g/dL (6.4-8.2)
[2023-01-16] MEDS: SUCRALFATE 1 GM/10 ML ORAL SUSP PO SCH ×2 (06:38→16:35)
[2023-01-16] MEDS: EMPAGLIFLOZIN 10 MG TAB PO SCH (06:39)
[2023-01-16 08:00] VITALS: BP 107/64
[2023-01-16] MEDS: FOLIC ACID 1 MG TAB PO SCH (09:46)
[2023-01-16] MEDS: PANTOPRAZOLE 40 MG/10 ML VIAL INJ IV SCH (09:48)
[2023-01-16] MEDS: ENOXAPARIN SOD 40 MG/0.4 ML SYRINGE SC SCH (09:48)
[2023-01-16] MEDS: LISINOPRIL 5 MG TAB PO SCH (09:48)
[2023-01-16] MEDS: THIAMINE HCL 100 MG TAB PO SCH (09:49)
[2023-01-16] MEDS: CARVEDILOL 3.125 MG TAB PO SCH ×2 (09:53→22:14)
[2023-01-16] MEDS: AMIODARONE HCL 200 MG TAB PO SCH ×2 (09:53→22:13)
[2023-01-16 12:34] VITALS: BP 114/69
[2023-01-16] MEDS: MAGNESIUM OXIDE 400 MG TAB PO SCH (12:44)
[2023-01-16] MEDS: levoFLOXacin 250 MG TAB PO SCH (12:44)
[2023-01-16] MEDS ORDERED: SPIRONOLACTONE 25 MG TAB PO ONE (15:15)
[2023-01-16 17:00] VITALS: BP 112/65
[2023-01-16 22:00] VITALS: BP 99/48
[2023-01-16] MEDS: PANTOPRAZOLE 40 MG TAB PO SCH (22:14)
[2023-01-17 05:00] VITALS: BP 106/52
[2023-01-17 06:20] LABS: Basophils # (auto) 0 10 ^3/uL (0-0.2); Basophils % (auto) 0.7 % (0.0-2.0); Eosinophils # (auto) 0.2 10 ^3/uL (0-0.8); Eosinophils % (auto) 5.3 % (0.0-7.0); Hematocrit 25.9 % (41.0-53.0); Hemoglobin 8.7 g/dL (13.5-17.5); Lymphocytes # (auto) 0.9 10 ^3/uL (0.4-5.4); Lymphocytes % (auto) 27.8 % (10.0-50.0); Mean Corpuscular Hemoglobin 28.2 pg (28.0-32.0); Mean Corpuscular Hgb Conc. 33.7 g/dL (32.0-36.0); Mean Corpuscular Volume 83.9 fL (80.0-100.0); Monocytes # (auto) 0.4 10 ^3/uL (0-1.3); Monocytes % (auto) 13.6 % (0.0-12.0); Neutrophils # (auto) 1.7 10 ^3/uL (1.6-8.6); Neutrophils % (auto) 52.6 % (37.0-80.0); Nucleated Red Blood Cells % 0.1 %; Red Blood Cells 3.09 10^6/uL (4.5-5.90); White Blood Cell 3.2 10^3/uL (4.4-10.8)
[2023-01-17 06:24] LABS: Red Cell Distribution Width 22.9 % (11.8-14.3)
[2023-01-17 06:49] LABS: Albumin 1.9 g/dL (3.4-5.0); BUN/Creatinine Ratio 8.7; Bilirubin, Total 1.1 mg/dL (0.2-1.0); Calcium 7.3 mg/dL (8.5-10.1); Potassium 3.6 mmol/L (3.5-5.1); Total Protein 5.5 g/dL (6.4-8.2)
[2023-01-17] MEDS: EMPAGLIFLOZIN 10 MG TAB PO SCH (06:50)
[2023-01-17] MEDS: SUCRALFATE 1 GM/10 ML ORAL SUSP PO SCH ×2 (06:50→17:58)
[2023-01-17 08:00] VITALS: BP 99/53
[2023-01-17] MEDS: CARVEDILOL 3.125 MG TAB PO SCH ×2 (09:31→21:53)
[2023-01-17] MEDS: ENOXAPARIN SOD 40 MG/0.4 ML SYRINGE SC SCH (09:31)
[2023-01-17] MEDS: AMIODARONE HCL 200 MG TAB PO SCH ×2 (09:31→21:54)
[2023-01-17] MEDS: FOLIC ACID 1 MG TAB PO SCH (09:31)
[2023-01-17] MEDS: PANTOPRAZOLE 40 MG TAB PO SCH ×2 (09:32→21:53)
[2023-01-17] MEDS: SPIRONOLACTONE 25 MG TAB PO SCH (09:32)
[2023-01-17] MEDS: THIAMINE HCL 100 MG TAB PO SCH (09:32)
[2023-01-17] MEDS: levoFLOXacin 250 MG TAB PO SCH (09:33)
[2023-01-17] MEDS: MAGNESIUM OXIDE 400 MG TAB PO SCH (09:33)
[2023-01-17] MEDS: LISINOPRIL 5 MG TAB PO SCH (09:40)
[2023-01-17] MEDS ORDERED: POTASSIUM CHL 20 Meq TABLET PO ONE (11:15)
[2023-01-17] MEDS: FUROSEMIDE 20 MG TAB PO SCH (18:52)
[2023-01-17 22:07] VITALS: BP 89/52
[2023-01-18 05:49] LABS: Basophils # (auto) 0 10 ^3/uL (0-0.2); Lymphocytes # (auto) 1.1 10 ^3/uL (0.4-5.4); Monocytes # (auto) 0.6 10 ^3/uL (0-1.3); Nucleated Red Blood Cells % 0.2 %
[2023-01-18 05:53] LABS: Basophils % (auto) 0.6 % (0.0-2.0); Eosinophils # (auto) 0.1 10 ^3/uL (0-0.8); Eosinophils % (auto) 3.7 % (0.0-7.0); Hematocrit 24.6 % (41.0-53.0); Hemoglobin 8.2 g/dL (13.5-17.5); Mean Corpuscular Hemoglobin 27.7 pg (28.0-32.0); Mean Corpuscular Hgb Conc. 33.5 g/dL (32.0-36.0); Mean Corpuscular Volume 82.9 fL (80.0-100.0); Monocytes % (auto) 15.6 % (0.0-12.0); Neutrophils % (auto) 52.1 % (37.0-80.0); Red Blood Cells 2.96 10^6/uL (4.5-5.90); White Blood Cell 3.9 10^3/uL (4.4-10.8)
[2023-01-18 05:57] LABS: Red Cell Distribution Width 22.7 % (11.8-14.3)
[2023-01-18 06:00] VITALS: BP 85/42
[2023-01-18] MEDS: FUROSEMIDE 20 MG TAB PO SCH ×2 (06:00→17:50)
[2023-01-18 06:02] LABS: Albumin 1.8 g/dL (3.4-5.0); Calcium 7.4 mg/dL (8.5-10.1); Potassium 3.6 mmol/L (3.5-5.1)
[2023-01-18 06:05] LABS: Total Protein 5.9 g/dL (6.4-8.2)
[2023-01-18] MEDS: SUCRALFATE 1 GM/10 ML ORAL SUSP PO SCH ×2 (06:36→17:39)
[2023-01-18] MEDS: EMPAGLIFLOZIN 10 MG TAB PO SCH (06:37)
[2023-01-18 08:00] VITALS: BP 114/42
[2023-01-18 08:29] VITALS: BP 114/42
[2023-01-18] MEDS: levoFLOXacin 250 MG TAB PO SCH (10:41)
[2023-01-18] MEDS: PANTOPRAZOLE 40 MG TAB PO SCH ×2 (10:41→22:11)
[2023-01-18] MEDS: SPIRONOLACTONE 25 MG TAB PO SCH (10:42)
[2023-01-18] MEDS: LISINOPRIL 5 MG TAB PO SCH (10:43)
[2023-01-18] MEDS: AMIODARONE HCL 200 MG TAB PO SCH ×2 (10:43→22:11)
[2023-01-18] MEDS: FOLIC ACID 1 MG TAB PO SCH (10:43)
[2023-01-18] MEDS: CARVEDILOL 3.125 MG TAB PO SCH ×2 (10:44→22:11)
[2023-01-18] MEDS: MAGNESIUM OXIDE 400 MG TAB PO SCH (10:45)
[2023-01-18] MEDS: ENOXAPARIN SOD 40 MG/0.4 ML SYRINGE SC SCH (10:46)
[2023-01-18] MEDS: THIAMINE HCL 100 MG TAB PO SCH (10:46)
[2023-01-18 13:30] VITALS: BP 104/45
[2023-01-18 16:41] VITALS: BP 116/56
[2023-01-18 22:00] VITALS: BP 94/45
[2023-01-19 04:57] VITALS: BP 91/48
[2023-01-19] MEDS: FUROSEMIDE 20 MG TAB PO SCH (05:58)
[2023-01-19] MEDS: EMPAGLIFLOZIN 10 MG TAB PO SCH (06:07)
[2023-01-19] MEDS: SUCRALFATE 1 GM/10 ML ORAL SUSP PO SCH (06:07)
[2023-01-19 06:51] LABS: Basophils # (auto) 0 10 ^3/uL (0-0.2); Eosinophils # (auto) 0.2 10 ^3/uL (0-0.8); Eosinophils % (auto) 4.6 % (0.0-7.0); Hematocrit 26.4 % (41.0-53.0); Hemoglobin 8.6 g/dL (13.5-17.5); Lymphocytes # (auto) 1.2 10 ^3/uL (0.4-5.4); Lymphocytes % (auto) 31.1 % (10.0-50.0); Mean Corpuscular Hemoglobin 26.8 pg (28.0-32.0); Mean Corpuscular Hgb Conc. 32.6 g/dL (32.0-36.0); Monocytes # (auto) 0.6 10 ^3/uL (0-1.3); Monocytes % (auto) 14.9 % (0.0-12.0); Neutrophils # (auto) 1.9 10 ^3/uL (1.6-8.6); Neutrophils % (auto) 48.4 % (37.0-80.0); Nucleated Red Blood Cells % 0.3 %; Red Blood Cells 3.22 10^6/uL (4.5-5.90); Red Cell Distribution Width 22.5 % (11.8-14.3)
[2023-01-19 07:11] LABS: Potassium 3.7 mmol/L (3.5-5.1)
[2023-01-19 07:13] LABS: Albumin 1.8 g/dL (3.4-5.0); BUN/Creatinine Ratio 8.2
[2023-01-19 07:15] LABS: Bilirubin, Total 0.9 mg/dL (0.2-1.0); Total Protein 6.1 g/dL (6.4-8.2)
[2023-01-19 09:00] VITALS: BP 93/61
[2023-01-19] MEDS: SPIRONOLACTONE 25 MG TAB PO SCH (09:54)
[2023-01-19] MEDS: levoFLOXacin 250 MG TAB PO SCH (09:55)
[2023-01-19] MEDS: FOLIC ACID 1 MG TAB PO SCH (09:55)
[2023-01-19] MEDS: AMIODARONE HCL 200 MG TAB PO SCH (09:55)
[2023-01-19] MEDS: PANTOPRAZOLE 40 MG TAB PO SCH (09:56)
[2023-01-19] MEDS: CARVEDILOL 3.125 MG TAB PO SCH (09:56)
[2023-01-19] MEDS: LISINOPRIL 5 MG TAB PO SCH (09:56)
[2023-01-19] MEDS: THIAMINE HCL 100 MG TAB PO SCH (09:59)
[2023-01-19] MEDS: ENOXAPARIN SOD 40 MG/0.4 ML SYRINGE SC SCH (09:59)
[2023-01-19] MEDS ORDERED: LEVO250T69 PO (10:22)
[2023-01-19] MEDS ORDERED: SPIR25TA PO (10:22)
[2023-01-19] MEDS ORDERED: CAR3125T PO (10:22)
[2023-01-19] MEDS ORDERED: LISI-275 PO (10:22)
[2023-01-19] MEDS ORDERED: FUR20T PO (10:22)
[2023-01-19] MEDS ORDERED: AMIO200T33 PO (10:22)
[2023-01-19] MEDS ORDERED: PANT40T PO (10:24)
[2023-01-19] MEDS: MAGNESIUM OXIDE 400 MG TAB PO SCH (12:38)
== END 2023-01-19 14:40 | disposition home or self-care (01) | DRG 137 ==
LOC: EDBD 21:00 → ER 21:00 → TELE 01-05 02:47 → TELE-E-ADS 01-05 12:37 → TELE-WESTW 01-05 16:27
PROVIDERS: ADMIT Nurse Practitioner; ATTEND Internal Medicine Pulmonary Disease
PROC: 05HC33Z Insertion of Infusion Device into Left Basilic Vein, Percutaneous Approach (ICD-10-PCS; principal; 2023-01-11)
PROC: B54NZZA Ultrasonography of Left Upper Extremity Veins, Guidance (ICD-10-PCS; 2023-01-11)
DX: J15.20 Pneumonia due to staphylococcus, unspecified (principal); J96.21 Acute and chronic respiratory failure with hypoxia; I50.43 Acute on chronic combined systolic (congestive) and diastolic (congestive) heart failure; E43 Unspecified severe protein-calorie malnutrition; D68.9 Coagulation defect, unspecified; I95.89 Other hypotension; D63.8 Anemia in other chronic diseases classified elsewhere; E87.1 Hypo-osmolality and hyponatremia; K74.60 Unspecified cirrhosis of liver; I11.0 Hypertensive heart disease with heart failure; E86.0 Dehydration; I48.0 Paroxysmal atrial fibrillation; E87.6 Hypokalemia; Z20.822 Contact with and (suspected) exposure to COVID-19; J45.909 Unspecified asthma, uncomplicated; I49.1 Atrial premature depolarization; B95.7 Other staphylococcus as the cause of diseases classified elsewhere; Z68.23 Body mass index [BMI] 23.0-23.9, adult
CPT/HCPCS: 36415; 36600; 70450; 71045; 71046; 71275; 76604; 76705; 80053; 80061; 80202; 80307; 81001; 82140; 82270; 82533; 82805; 83036; 83605; 83735; 83880; 84443; 84484; 85007; 85025; 85027; 85379; 85610; 85730; 86704; 86706; 86708; 86803; 87040; 87070; 87077; 87186; 87205; 87340; 87426; 93005; 93306; 93970; 94640; 94660; 96365; 96372; 96375; 97110; 97116; 97163; 97530; C9113; G0378; J0696